=== PATIENT | male | born 1995 | race Caucasian/White ===

== ENCOUNTER 2017-07-24 19:35 | Emergency (ER) | payer OTHER ==
[~2017-07-24] VITALS: Ht 172.7 cm; Wt 73.4 kg
[~2017-07-24 19:35] MED LIST: ALBUTEROL SULF8.5 GM IH; CLINDAMYCIN HC300 MG PO; HYDROCODON-ACE1 EAC7 PO; MOBIC15 MG PO; MOTRIN600 MG PO; MOTRIN800 MG PO; NALTREXONE HCL50 MG PO; NAPROSYN500 MG PO; OMEPRAZOLE20 MG PO; PEN-VEE K,VEET500 MG PO; PERCOCET 5/31 TABLET PO; TESSALON PERLE100 MG PO; TESSALON200 MG PO; TYLENOL REGULA325 MG PO; TYLENOL WITH C1 EACH PO; ULTRAM50 MG PO; ZANTAC75 M1 PO; ZITHROMAX Z-PA250 MG PO
[2017-07-24] MEDS ORDERED: PEN-VEE K,VEET500 MG PO (21:21)
[2017-07-24] MEDS ORDERED: MOTRIN600 MG PO (21:21)
[2017-07-24 21:37] VITALS: BP 120/74
== END 2017-07-24 21:47 | disposition home or self-care (01) ==
LOC: EME 19:35
DX: K08.89 Other specified disorders of teeth and supporting structures (principal); F17.200 Nicotine dependence, unspecified, uncomplicated
CPT/HCPCS: 99281; 99284